=== PATIENT | female | born 1950 | race Caucasian/White ===

== ENCOUNTER 2019-07-04 14:24 | Outpatient (REF) | payer OTHER, SELFPAY | END 2019-07-04 14:44 | LOC: LBN 14:24 | PROVIDERS: PCP Nurse Practitioner; Visit Provider Nurse Practitioner | DX: N89.8 Other specified noninflammatory disorders of vagina (principal) | CPT/HCPCS: 87480; 87510; 87660 ==

== ENCOUNTER 2019-07-14 09:35 | Outpatient (REF) | payer OTHER, SELFPAY ==
--- NOTE | 2019-07-14 09:10 | PAPFT_PTH ---
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
== END 2019-07-14 09:55 ==
LOC: LBN 09:35
PROVIDERS: PCP Nurse Practitioner; Visit Provider Obstetrics & Gynecology
DX: N89.8 Other specified noninflammatory disorders of vagina (principal); Z12.4 Encounter for screening for malignant neoplasm of cervix; Z11.51 Encounter for screening for human papillomavirus (HPV)
CPT/HCPCS: 88142; 87480; 87510; 87624; 87660

== ENCOUNTER 2019-07-24 00:25 | Outpatient (CLI) | payer OTHER, SELFPAY ==
--- NOTE | 2019-07-24 08:00 | DI.US_ITS ---
EXAM: US PELVIS TRANSVAGINAL CLINICAL HISTORY: post menopausal bleeding and discharge, N95.0. TECHNIQUE: Transabdominal and transvaginal pelvic ultrasound was performed using standard protocol. COMPARISON: No exams were available for comparison FINDINGS: KIDNEYS: Kidneys are symmetric in size. No evidence of renal calculi. No evidence of hydronephrosis. No renal mass or cyst identified. UTERUS: Position: Anteverted. Size: 9.2 x 4.3 x 6.2 cm Endometrium: 1.7 cm. Thickened and heterogeneous for the patient's age. Myometrium: There are 2 masses seen within the myometrium. The largest is anterior in the fundal reg ion and measures 4 x 2.7 x 4.0 cm. The smaller is posterior in the lower uterine segment and measure s 2.4 x 2.3 x 2.8 cm. These likely reflect uterine fibroids. They do distort the contour of the jona kathie. Cervix: Nabothian cysts are present. OVARIES: Right: Not visualized transabdominally or transvaginally. Left: Not visualized transabdominally or transvaginally. CUL-DE-SAC: Free fluid: None. Other: None. IMPRESSION: 1. Normal sonographic appearance of the kidneys. 2. Uterine fibroids. 3. Thickened heterogeneous endometrium. In this postmenopausal patient, gynecologic follow-up is rec ommended. Endometrial biopsy should be considered. 4. Ovaries not visualized transabdominally or transvaginally. DATA REPOSITORY:
[2019-07-24 10:29] LABS: Hemoglobin A1C 5.9 % (3.8-5.6)
[2019-07-24 10:43] LABS: Calculated LDL 150 mg/dL (<100); Cholesterol 243 mg/dL (<200); HDL Cholesterol 76 mg/dL (40-60); Triglyceride 86 mg/dL (<150)
== END 2019-07-24 00:45 ==
PROVIDERS: PCP Nurse Practitioner; Visit Provider Obstetrics & Gynecology
DX: N95.0 Postmenopausal bleeding (principal); E78.5 Hyperlipidemia, unspecified; Z13.1 Encounter for screening for diabetes mellitus; D25.9 Leiomyoma of uterus, unspecified; R93.89 Abnormal findings on diagnostic imaging of other specified body structures
CPT/HCPCS: 36415; 80061; 76830; 76856; 83036

== ENCOUNTER 2019-10-10 02:27 | Outpatient (CLI) | payer OTHER, SELFPAY ==
--- NOTE | 2019-10-10 12:00 | DI.MAMMO_ITS ---
EXAM: MG MAMMO SCREENING CLINICAL HISTORY: screening, Z12.39 TECHNIQUE: Mammograms were interpreted according to the usual protocol including computer analysis w [employer] CAD system, tomosynthesis and C-view imaging. COMPARISON: FINDINGS: Are of moderate density with fairly symmetrical distribution of fibroglandular tissue. No dominant m ass or clumped microcalcification is identified in either breast. No prior studies available for mee diaz. IMPRESSION: No specific evidence of malignancy at this time. Routine screening examinations are suggested at yea rly intervals in this age group according to the ACS ACR guidelines. BI-RADS Cat 1 - Negative: Breast Density - Category B - Scattered areas of fibroglandular density
== END 2019-10-10 02:47 ==
PROVIDERS: PCP Nurse Practitioner; Visit Provider Nurse Practitioner
DX: Z12.31 Encounter for screening mammogram for malignant neoplasm of breast (principal)
CPT/HCPCS: 77063; 77067; 99203

== ENCOUNTER 2019-10-13 02:54 | Outpatient (CLI) | payer OTHER, SELFPAY ==
[2019-10-13 11:05] LABS: Abs Immature Grans 0.01 k/cumm (0.0-0.09); Absolute Basophil Count 0.04 k/cumm (0.0-0.2); Absolute Eosinophil Count 0.12 k/cumm (0.0-0.7); Absolute Lymphocyte Count 1.48 k/cumm (1.2-3.4); Absolute Neutrophil Count 3.59 k/cumm (1.2-6.7); Basophils % 0.7; Eosinophils % 2.1; HCT 43.4 % (36.0-46.0); Immature Grans % 0.2 %; Lymphocytes % 25.3; Mean Corp. HGB Concentration 32.3 g/dL (32.0-36.0); Mean Corpuscular Hemoglobin 29.9 pg (27.0-33.0); Mean Corpuscular Volume 92.5 fL (80-95); Mean Platelet Volume 9.2 fL (8.0-11.0); Monocytes % 10.3; Neutrophils % 61.4; Platelet Count 359 x1000/uL (130-400); RBC 4.69 m/cumm (4.00-5.20); RBC Distribution Width 13.2 % (11.7-14.6); White Blood Cell Count 5.84 k/cumm (4.4-10.8)
== END 2019-10-13 03:14 ==
PROVIDERS: PCP Nurse Practitioner; Visit Provider Obstetrics & Gynecology
DX: E66.09 Other obesity due to excess calories (principal); N89.8 Other specified noninflammatory disorders of vagina; Z68.38 Body mass index [BMI] 38.0-38.9, adult
CPT/HCPCS: 36415; 86850; 86900; 86901; 85025

== ENCOUNTER 2019-10-16 07:58 | Outpatient (CLI) | payer OTHER, SELFPAY ==
[2019-10-17 14:19] LABS: COVID-19 RT-PCR UVMMC Result Negative (Negative)
== END 2019-10-16 08:18 ==
PROVIDERS: PCP Nurse Practitioner; Visit Provider Obstetrics & Gynecology
DX: Z11.59 Encounter for screening for other viral diseases (principal); Z01.818 Encounter for other preprocedural examination
CPT/HCPCS: U0003

== ENCOUNTER 2019-10-19 13:01 | Day surgery (SDC) | payer OTHER, SELFPAY ==
[2019-10-19 13:20] VITALS: BP 170/97; PULSE 62; RESP 18; TEMP 36.6; O2SAT 99
[2019-10-19] MEDS: Lactated Ringers 1,000 ML 100 ML IV (13:40)
--- NOTE | 2019-10-19 14:56 | ENDOMET_PTH ---
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
[2019-10-19] MEDS: Lidocaine 1% Multi-Dose 50 ML VIAL (14:59)
[2019-10-19] MEDS: HYDROcodone 5/Acetaminophen 325 TAB PO (15:39)
[2019-10-19 15:45] VITALS: BP 144/70; PULSE 62; RESP 16; TEMP 36.5; O2SAT 100
[2019-10-19 16:13] VITALS: BP 138/61; PULSE 63; RESP 16; TEMP 36.5; O2SAT 100
--- NOTE | 2019-10-19 16:28 | W.PM.DSUDISC ---
Discharge Plan Disposition Patient Disposition: HOME Condition: Good Discharge Details Attending Provider: Cristian Ortiz Primary Care Provider: Autumn Castillo Home Meds and New Rx's Prescriptions: New hydrocodone-acetaminophen 5-325 mg Tablet 1 tab PO Q4H PRNQty: 15 RF: 0 norethindrone acetate [Aygestin] 5 mg tablet 5 mg PO QID 3 Days Qty: 12 RF: 0 Continued multivitamin [Daily Vitamin] 1 EACH tablet 1 ea PO DAILY RF: 0 ascorbic acid (vitamin C) 1,000 MG tablet 1,000 mg PO DAILY RF: 0 cholecalciferol (vitamin D3) [Vitamin D3] 1,000 UNIT capsule 1,000 unit PO DAILY RF: 0 melatonin-pyridoxine HCl (B6) 1 EACH tablet 1 ea PO HS RF: 0 Caltrate 600-D Plus Minerals 1 EACH tablet 1 ea PO DAILY RF: 0 vitamin B complex 1 EACH capsule 1 ea PO DAILY RF: 0 magnesium citrate 100 MG tablet 500 mg PO DAILY RF: 0 Discharge Instructions Stand Alone Forms: DSU Post Gynecology Surgery, [facility] Post Suction D+C, Jessica Burroughs (DSU) Activity:: Activity as Tolerated Remove Dressings/Wound Care:: Do Not Remove Diet:: As Tolerated Discharge Orders Discharge Orders: Discharge Order (Routine); Ordered 10/19/19 Ordered By: Cristian Ortiz DS: Diagnosis Discharge Diagnosis (1) Post-menopausal bleeding: Status: Acute
[2019-10-19] MEDS: Norethindrone 5 MG TAB 10 MG PO (16:33)
--- NOTE | 2019-10-19 16:33 | W.PM.OP ---
Date of service: 10/19/19 Time of Service: 16:33 Operative Note Operative Note DATE OF PROCEDURE: 10/19/19 PRE-OP DIAGNOSIS: PMB POST-OP DIAGNOSIS: same PROCEDURE: Hysteroscopy D&C SURGEON: Cristian Ortiz ANESTHESIA: MAC and local ESTIMATED BLOOD LOSS: 75 PATHOLOGY: other (1. Endometrial polyps 2. Endometrial curettings ) COMPLICATIONS: None Patient was transported to: PACU Patient's condition: stable Findings: 1. Large endometrial polyp measurine ~3cm with several small polyps and background of atrophic appearing endometrium. Procedure Description: The patient was taken to the operating room and after adequate sedation was achieved the patient was placed in lithotomy position. The patient was prepped and draped in the usual sterile manner. A speculum was placed in the vagina with good visualization of the cervix. The cervix was essentially flush with the upper vagina. An Allis forcep was placed on the anterior lip of the cervix. A paracervical block with 10 cc of 1% plain lidocaine solution was instilled. The cervical os was open and did not require dilation. A 5 mm 30 degree hysteroscope with normal saline distention media was advanced through the cervix with good visualization of the endometrial cavity. There was a large endometrial polyp measuring approximately 3 cm that was filling the endometrial cavity. There were several small surrounding polyps. The background endometrium was atrophic in appearance. Polyp forceps were advanced easily and the polyp was grasped and twisted on its stalk. The polyp was removed easily. Several passes were made with the polyp forceps and the remaining polyps were also removed. These were submitted to pathology as a separate specimen. The hysteroscope was reinserted and the polyps appeared to have all been removed successfully. A sharp curettage with a loop curette was performed and endometrial curettings were submitted as a separate specimen as well. The procedure was concluded at this point. Sponge, lap and instrument counts were correct at the conclusion of the procedure. The patient was transferred to PACU in stable condition.
[2019-10-19 16:37] VITALS: BP 123/67; PULSE 69; RESP 16; TEMP 36.3; O2SAT 100
[2019-10-19 17:03] VITALS: BP 153/73; PULSE 57; RESP 18; TEMP 36.5; O2SAT 100
== END 2019-10-19 17:10 | disposition home or self-care (01) ==
PROVIDERS: PCP Nurse Practitioner; Visit Provider Obstetrics & Gynecology
PROC: 0UDB8ZZ Extraction of Endometrium, Via Natural or Artificial Opening Endoscopic (ICD-10-PCS; CPT 58558; principal; 2019-10-19 14:30)
DX: C54.1 Malignant neoplasm of endometrium (principal); N95.0 Postmenopausal bleeding; N84.0 Polyp of corpus uteri; R93.89 Abnormal findings on diagnostic imaging of other specified body structures
CPT/HCPCS: 58558; 88305; 88342; 88361; J1885; J2001; J2405

== ENCOUNTER 2019-11-13 00:44 | Outpatient (CLI) | payer OTHER, SELFPAY ==
--- NOTE | 2019-11-13 | DI.CT_ITS ---
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 TECHNIQUE: Imaging Protocol: Axial computed tomography images with coronal and sagittal reformatted images were created and reviewed CONTRAST MATERIAL: Intravenous: Omnipaque 350 Contrast volume:structured data in ml Oral: Yes Intravenous: Omnipaque 350 Contrast volume:100 cc COMPARISON: Pelvic ultrasound 24 July 2019 FINDINGS: CHEST: Heart and great vessels: Normal heart size. Minimal aortic calcification. No aneurysm. There are no pleural or pericardial effusions. Adenopathy: None. Lungs: No pulmonary nodules, mass or infiltrate. Minimal scarring. Bones: Mild degenerative disc changes. There is no evidence of spine or rib fracture. Thyroid: Several nodules right lobe. ABDOMEN/PELVIS: Liver: Normal density. No measurable mass. Gallbladder: No calcified stones, no wall thickening, no abnormal distention.No pericholecystic fluid . Biliary tract: No radiodense calculus, no dilation. Pancreas: Normal density, no abnormal calcifications or inflammatory process. Spleen: Normal. Kidneys: Normal size, contour and axis. No radiodense stones. No hydronephrosis. No masses seen. No perinephric collection. Adrenal glands: No masses seen. Abdominal Aorta: Non-dilated. Mild atherosclerotic changes. Bowel: No obstruction or bowel wall thickening. Diverticulosis is present greatest in the sigmoid col on. The appendix appears normal. There is a moderate size hiatal hernia. Bladder: No gross wall thickening, focal mass or stones. Peritoneal cavity: No ascites, focal collection or mesenteric inflammatory response. No free air. Bones: No suspicious lesions or fractures. Mild degenerative changes. Reproductive organs: Uterus is enlarged and shows a lobulated contour, consistent with fibroids.. Lymph nodes: No pathologically enlarged lymph nodes. Soft tissues: There is a spigelian hernia containing mainly fat. There is a small portion of the sup erior right side of the bladder extending into the defect. Impression: No evidence of metastatic disease in the chest, abdomen and pelvis. RADIATION DOSE DELIVERED: LINK-TO-SR Total DLP Total DLP DATA REPOSITORY: All CT scans at this facility are submitted to the National Radiology Data Registry (NRDR) Dose Index Registry (DIR) with the [employer] (ACR). RADIATION OPTIMIZATION: All CT scans at this facility use at least one of these dose optimization te chniques: automated exposure control; mA and/or kV adjustment per patient size (includes targeted exa ms where dose is matched to clinical indication); or iterative reconstruction.
[2019-11-13] MEDS: Omnipaque 350 MG/ML 100 ML BTL IV (09:50)
[2019-11-13] MEDS: Normal Saline - Diluent 50 ML VIAL IV (10:54)
[2019-11-13] MEDS: Normal Saline Flush 10 ML SYR IVP (10:55)
== END 2019-11-13 01:04 ==
PROVIDERS: PCP Nurse Practitioner; Visit Provider Obstetrics & Gynecology Gynecologic Oncology
DX: C54.1 Malignant neoplasm of endometrium (principal); Z12.89 Encounter for screening for malignant neoplasm of other sites; D25.9 Leiomyoma of uterus, unspecified; K43.9 Ventral hernia without obstruction or gangrene; E04.2 Nontoxic multinodular goiter
CPT/HCPCS: 74177; 71260; J3490

== ENCOUNTER 2021-03-12 15:01 | Outpatient (CLI) | payer OTHER, SELFPAY ==
--- NOTE | 2021-03-12 14:45 | DI.RAD_ITS ---
Exam(s) XR SHOULDER LT COMPLETE 2+V EXAM: XR SHOULDER LT COMPLETE 2+V CLINICAL HISTORY: dislocation of left glenohumeral joint. TECHNIQUE: 2D digital imaging was performed. COMPARISON: CR,DX XR SHOULDER 2+ VW LEFT from 03/08/2021 FINDINGS: There is comminuted fracture dislocation of the humeral head-neck. Main aspect of the humeral head i s dislocated anteriorly, as best seen on the outlet view. Other oblique fracture line extends from t op of the femoral head through the metaphysis. On the outlet view a main fracture fragment here is l ocated posteriorly. There is also a 6 x 4 millimeter calcific density seen in the upper glenoid gómez a. This is probably pre-existing. No obvious fracture of the osseous glenoid itself. No dislocation of the AC joint. No obvious clavi shen nor acromial fracture. No ominous osseous lesions. IMPRESSION: Displaced comminuted fracture of the humeral head and neck, as described above. DATA REPOSITORY: RADIATION DOSE DELIVERED:
== END 2021-03-12 15:02 | disposition home or self-care (01) ==
LOC: DIORS 15:01
PROVIDERS: PCP Nurse Practitioner; Referring Provider Nurse Practitioner; Visit Provider Student in an Organized Health Care Education/Training Program
DX: S43.085A Other dislocation of left shoulder joint, initial encounter (principal); S42.292A Other displaced fracture of upper end of left humerus, initial encounter for closed fracture; W19.XXXA Unspecified fall, initial encounter; I10 Essential (primary) hypertension
CPT/HCPCS: 99204; 99214; 73030

== ENCOUNTER 2021-03-18 01:42 | Outpatient (CLI) | payer OTHER, SELFPAY ==
[2021-03-18 12:41] LABS: Source Nasal/Nares
[2021-03-18 16:05] LABS: COVID-19 PCR Negative (Negative)
== END 2021-03-18 01:43 | disposition home or self-care (01) ==
LOC: LBO 01:43
PROVIDERS: PCP Nurse Practitioner; Visit Provider Student in an Organized Health Care Education/Training Program
DX: Z20.822 Contact with and (suspected) exposure to COVID-19 (principal); Z01.818 Encounter for other preprocedural examination
CPT/HCPCS: 87635

== ENCOUNTER 2021-03-20 09:59 | Inpatient (IN) | payer MEDICARE, SELFPAY ==
[2021-03-20] VITALS (10 sets, daily range): BP systolic 127–175; BP diastolic 51–81; PULSE 68–83; RESP 15–23; TEMP 36.4–37.3; TEMPC 36; O2SAT 95–100; BMI 37.3
--- NOTE | 2021-03-20 07:34 | W.ANESPRE ---
General Info Date of Service Date Performed: 03/20/21 Height: 5 ft 5 in Weight: 101.605 kg Body Mass Index (BMI): 37.3 Surgical Procedure: Operation Date: 03/20/21 11:40 Proposed Procedures Side Surgeon p Fracture Reverse Total Shoulder Arthroplasty, biceps tenodesis, and any other indicated procedures Naif Hernandez MD Meds Allergies and Home Medications Allergies Allergy/AdvReac Type Severity Reaction Status Date / Time Sulfa (Sulfonamide AdvReac Not Unverified 03/20/21 10:44 Antibiotics) effective Home Medication Medication Instructions Recorded hydrochlorothiazide 25 mg tablet 25 mg PO DAILY #90 tab 08/13/20 melatonin 10 mg capsule 10 mg PO HS 08/13/20 acetaminophen 1,000 mg PO Q6H PRN 03/20/21 Current Visit Medications: Current Medications Generic Name Dose Route Start Last Admin Trade Name Freq PRN Reason Stop Dose Admin Ringer's Solution 1,000 mls @ 100 mls/hr 03/20/21 06:00 IV 04/18/21 23:59 INFUSION JARETH Cefazolin Sodium 3,000 mg/ 100 mls @ 200 mls/hr 03/20/21 06:00 Sodium Chloride IVPB 03/20/21 23:59 PREOP JARETH Tranexamic Acid 1,000 mg/ 60 mls @ 360 mls/hr 03/20/21 06:00 Sodium Chloride IVPB 03/20/21 18:00 PREOP JARETH IV Miscellaneous Supplies 1 each 03/20/21 06:00 Iv Access IV 04/18/21 23:59 DIRECTED JARETH Sodium Chloride 0 ml 03/20/21 06:00 Normal Saline Flush 10 Ml Syr IV 04/18/21 23:59 PRN PRN Sodium Chloride 0 ml 03/20/21 06:00 Normal Saline 10 Ml Vial IJ 04/18/21 23:59 DIRECTED PRN Sterile Water 0 ml 03/20/21 06:00 Water,Injection,Sterile 10 Ml Vial IJ 04/18/21 23:59 DIRECTED PRN PFSH Active Problems Active Problems: Problem Status Onset Code Closed traumatic dislocation of left glenohumeral joint 03/08/21 S43.085A Closed fracture of proximal end of left humerus 03/08/21 S42.202A Prediabetes R73.03 Hypertension I10 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 Obesity E66.9 Medical History Medical History Tonsillar abscess drained Torticollis Vaginal discharge Surgical History Surgical History H/O Spinal surgery repairing torticollis S/P hysterectomy 11/2019 adenocarcinoma endometrium Tobacco Smoking/Tobacco Use Status: Former Tobacco Use Alcohol Alcohol Intake: never Substance Use Substance use: Never Substance use type: does not use Vital Signs and Lab Results Lab Results Blood Type / Crossmatch: No Data to Display Complete Blood Count: No Data to Display Complete Metabolic Panel: No Data to Display Liver Function Panel: No Data to Display Coagulation Panel: No Data to Display Cardiac Panel: No Data to Display Arterial Blood Gas: No Data to Display Venous Blood Gas: No Data to Display Pancreas Panel: No Data to Display Thyroid Panel: No Data to Display Infectious Disease: Coronavirus (COVID-19)(PCR) Negative (Negative) 03/18/21 10:31 03/18/21 Coronavirus 2019 Source Nasal/Nares 03/18/21 10:31 03/18/21 Blood Cultures: No Data to Display Toxicology Panel: No Data to Display Anesthesia Assessment and Plan Anesthesia History Personal History: No History of Anesthesia Complications Family History: No Family History of Anesthesia Complications Exercise Tolerance Exercise Tolerance: Metabolic Equivalents>4 Pertinent Negatives Pertinent Negatives: No Symptoms of GERD, No Major Cardiovascular Symptoms or Complaints, No Major Pulmonary Symptoms or Complaints and No History of CVA/TIA Cardiac & Pulmonary Exam Cardiac Exam: Normal S1/S2 Heart Sounds Pulmonary Exam: Clear Bilateral Breath Sounds Implantable Cardiac Device Does patient have a Pacemaker or an ICD?: No Airway Exam Known Difficult Airway: No Mallampati Class: 3 Mouth Opening: Normal (> 3cm) Thyromental Distance: Less than 3 cm Neck Range of Motion: Full ROM Neck Circumference: Normal Teeth Condition: Removable Dentures/Plates Upper, Removable Dentures/Plates Lower and Edentulous ASA Classification ASA Score: ASA 2 Emergency Case?: No NPO Status NPO Status: NPO Clears >2 hours, Solids >8 hours Anesthesia Plan Resuscitation Status: Full Code Anesthesia Technique: General Anesthesia Airway Planned: Endotracheal Tube Pain Management: Surgeon and patient request nerve block Monitors Used: Standard Monitors
--- NOTE | 2021-03-20 10:15 | DI.RAD_ITS ---
Exam(s) XR SHOULDER LT COMPLETE 2+V EXAM: XR SHOULDER LT COMPLETE 2+V CLINICAL HISTORY: Postop TECHNIQUE: COMPARISON: CR XR SHOULDER LT COMPLETE 2+V from 03/12/2021 FINDINGS: Three views were obtained. There is a reverse shoulder prosthesis in position. The components appea r well seated. Some fragmentation at the proximal humerus is noted, probably unchanged from the preo perative images which showed a proximal humeral comminuted fracture. IMPRESSION: RADIATION DOSE DELIVERED: Total DLP
[2021-03-20] MEDS: Lactated Ringers 1,000 ML 100 ML IV (10:46)
[2021-03-20] MEDS: Normal Saline Flush 10 ML SYR IV (11:12)
[2021-03-20] MEDS: ceFAZolin 3,000 MG in Normal Saline 100 ML 200 MG IVPB (11:54)
--- NOTE | 2021-03-20 12:57 | W.ANESNERVE ---
Nerve Block Single Injection Procedure Date and Time Date Performed: 03/20/21 Procedure Start: :25 Location Where Procedure Performed Procedure Location: Day Surgery Unit Reason Performed: Postoperative Analgesia Requesting Provider: Naif Hernandez Timeout Performed Timeout Performed: Yes Monitoring Used ECG, Blood Pressure and SpO2 Sterility Sterility: Hand Hygiene, Surgical Cap, Surgical Mask, Sterile Gloves and Chlorhexidine Sedation Given During Procedure Sedation Given (Indicate Dose Given): Versed IV Dose:: 2mg Patient Mental Status Patient Mental Status: Sedate with meaningful communication Nerve Block 1st Nerve Block: Laterality: Left Block Type: Interscalene Needle / Catheter Used: 80mm SonoPlex II Local Anesthetic Bolus (Indicate Dose Given): Lidocaine used for local infiltration of skin, Bupivacaine 0.5% Dose:: 10 mL and Exparel Dose:: 10 mL Additives (Indicate Dose Given): None Ultrasound: Sterile probe cover and gel used Ultrasound Image Saved?: Yes Nerve Stimulator: Not Used Paresthesia: None Procedure Tolerated: No Complications and Patient tolerated well Procedure Outcome: Successful Performed By: Kristy Montgomery Supervised By: Nicholas Cardoso
--- NOTE | 2021-03-20 16:35 | W.PM.OP ---
Date of service: 03/20/21 Time of Service: 12:00 Operative Note Operative Note DATE OF PROCEDURE: 03/20/21 PRE-OP DIAGNOSIS: Left: 1. Proximal humerus fracture dislocation POST-OP DIAGNOSIS: same PROCEDURE: Left: 1. Reverse total shoulder arthroplasty, CPT # 04999 2. Open biceps tenodesis, CPT # 86629 The urgent care physician assistant was medically required as this procedure involves retraction, protection of neurovascular structures, and manipulation of multiple instruments and implants at the same time, which cannot be done without a skilled urgent care physician assistant. SURGEON: Naif Hernandez CLOTHESPIN MACHINE OPERATOR: Maricarmen Tomlinson CLOTHESPIN MACHINE OPERATOR: Ana Cristina Preston ANESTHESIA TYPE: Local By Surgeon, General LMA/ETT and Primary Nerve Block Refer to Anesthesia Record ESTIMATED BLOOD LOSS: 300 PATHOLOGY: none sent TOURNIQUET TIME: 0 COMPLICATIONS: None Patient was transported to: PACU Patient's condition: stable Implants: [employer] modular glenoid system baseplate 24 mm [employer] modular glenoid system central post 25mm [employer] modular glenoid system peripheral inferior nonlocking screw 32 mm, peripheral locking screws 32 mm superior, 16mm posterior, 16mm anterior [employer] modular glenoid system glenosphere 36 +4 mm lateralized [employer] humeral stem 135 degrees size 7 [employer] suture cup size 36 neutral offset [employer] humeral insert size 36 +3 mm Indications: Please see complete medical record for details. Findings: Significantly comminuted displaced proximal humerus fracture. Long head biceps tenosynovitis. Intact subscapularis to large lesser tuberosity fragment that crossed the bicipital groove. Thin but intact supraspinatus and infraspinatus to the greater tuberosity fragments. Procedure Description: In the operating room, general anesthesia was induced. The patient was positioned beachchair on the operating room table. All bony prominences were well-padded. Preoperative antibiotics were administered. The shoulder was prepped and draped in the usual sterile fashion for shoulder arthroplasty. The correct patient, procedure, and side of the procedure were all verified prior to incision. The deltopectoral approach was taken to the anterior shoulder. Care was taken to bluntly dissect the interval between the deltoid and pectoralis major muscles and to identify the cephalic vein within its fat stripe. The the vein was mobilized medially. Subdeltoid space and conjoined tendon were freed of adhesions. The long head of the biceps tendon was identified just lateral to the lesser tuberosity. The uppermost margin of the pectoralis major tendon was released from the proximal humerus. The long head of the biceps tendon was tenodesed in situ using suture tape in a [id number] fashion securing it superior margin the pectoralis major tendon. Appropriate coagulation was achieved especially inferiorly. The biceps tendon was amputated and followed proximally to identify the rotator interval. A Mcgregor was used to dissect and identify the expected lesser tuberosity and greater tuberosity fracture fragments. They were from each other as well as the proximal metaphysis carefully to preserve fracture lloyd. They were each tagged using a suture tape and retracted out of the way posteriorly. A proximal humerus was retracted inferiorly and posteriorly and the humeral head was identified in the subcoracoid recess. Blunt retractors and digital dissection was used to free it from surrounding tissue and it was carefully rotated and withdrawn from the wound in entirety. There was release of hematoma but no additional venous or arterial bleeding. There is no obvious nerve injury. The proximal humerus did not require any bone cut given the low fracture. The head was brought to the back table and cancellous bone harvested for later bone grafting. The lesser tuberosity was then retracted anteriorly and the greater tuberosity posteriorly. Attention was then turned to the glenoid and retractors were placed and a 360 degree release performed using the long head of the biceps remnant to remove soft tissue about the glenoid rim. The axillary nerve was palpated but not exposed inferior and traversing from beneath the subscapularis tendon appropriately below the scapular neck heading posteriorly. Care was taken inferiorly to work on bone only between 5 and 7:00 o'clock and bluntly elevate tissues inferiorly. The glenoid was decorticated soft tissue and residual cartilage. Once adequate exposure had been achieved, a central inferior position was marked on the glenoid. The guidepin was inserted through the guide in a neutral position, but the wire exited anteriorly around 20-25 mm. Guidewire was then withdrawn and redirected into more posterior position taking care to maintain slight inferior tilt. Wire length was more appropriate around 30 mm. Depth gauge was used to confirm central post length. The central reamer followed by the peripheral reamer were then used to the appropriate depths. There was appropriate eccentric reaming inferiorly and anteriorly. The drill for the central post was used the appropriate depth. The baseplate was impacted and fully compressed onto the glenoid surface. Testing the glenoid baseplate resulted in movement through the entire scapula. The over baseplate reamer was used to confirm adequate peripheral reaming had been achieved. The nonlocking guide was used to direct and inferior screw posteriorly inferiorly at the scapular spine, which was inserted with excellent compressive fixation strength. The locking guide was used superiorly, but the screw exited somewhat early around 25 mm. Instead the nonlocking guide was then used and screw directed more anteriorly toward the base of the coracoid. Unfortunate, the compression screw did not have good fixation strength. Depth was confirmed and a slightly longer screw was selected, but this also did not have compressive strength. Instead, the originally drilled locking screw trajectory was then used bicortically and a locking screw placed without difficulty. The inferior compression screw was fully tightened before engaging the superior locking screw. The locking guide and drill were used to drill for anterior and posterior baseplate locking screws, which were appropriately implanted. Glenosphere was then placed onto the Morales taper and impacted. It was then locked with appropriate countersinking of the setscrew. The glenosphere was inspected and found to have good fit, appropriate positioning, and no soft tissue or bony impingement especially inferiorly. Attention was then turned back to the proximal humerus, which was delivered from the wound and maintained in external rotation. There was significant bone loss owing to the extension of the greater and lesser tuberosity fractures distally. A double fiber tape cerclage was placed at this inferior extent of the fracture with the tails left for later tuberosity fixation. Reaming was done up to size 7. The broaches were sequentially used to open the proximal humerus starting with a size 5 and going up to size 7 and sunk to the appropriate depth using the intact medial calcar as a guide while maintaining approximately 30 degrees retroversion. There is appropriate fit and rotational control. No reaming was necessary for the suture cup given the fracture setting.. The humeral trial cup was connected. Trialing was commenced with +3mm liner. The shoulder was reduced and taken through range of motion. There was excellent tension of the conjoined tendon and deltoid. Range of motion was appropriate without impingement and stability was good. The trial components were removed from the proximal humerus. The wound was copiously irrigated with normal saline. A small amount of vancomycin powder was distributed in the proximal humerus. The the proximal humeral stem and suture cup were assembled on the back table. A doubled FiberTape was then passed in cerclage fashion from anterior to posteriorly around the holes in the suture cup. Additional suture tapes were loaded anteriorly superiorly and posteriorly for tuberosity repair through suture cup. Humerus and suture cup were appropriately impacted into the proximal humerus. There were tested and found of excellent rotational control and fixation. Trial reduction for stability and range of motion was done again with the +3mm liner. Stability was good with appropriate tension on the conjoined deltoid. The tuberosities were able to be repaired to the fracture lloyd without undue difficulty. The trial liner removed and the definitive spacer and liner connected. Shoulder was reduced and these final implants demonstrated appropriate range of motion and stability. Cancellous bone graft was then packed around the proximal humerus metaphysis stem and suture cup. Care was taken to reduce the greater tuberosity bone fragment lesser tuberosity bone fragment to the fracture lloyd distally and to each other. A free needle was used to pass the loaded anterior superior and posterior suture tapes through the rotator cuff the bony margin of the greater none lesser tuberosity and reduction maintained while they were tied down in a horizontal mattress fashion. Additional bone graft was placed and packed appropriately beneath the anterior and posterior tuberosities about the suture cup. The initial tag stitches were then brought over and tied to each other closing the door. The anterior and posterior tuberosity stitches from the implant where also brought over and tied together. The remainder of the bone graft was then packed about the suture cup metaphyseal junction. The fiber tape cerclage was then brought over the bony tuberosities more distally and secured with a Nice knot. Suture tapes were then brought from anterior superior and posterior superior and tied down to the fiber tape cerclage securing additional fixation from proximal to distal. The repair was inspected and felt to well approximate the anatomy. The greater and lesser tuberosity moved as a unit with each other in the proximal humerus. An additional suture tape was placed in the lateral rotator interval. The shoulder was copiously irrigated with normal saline and then irrisept. The deltopectoral interval was loosely closed burying the cephalic vein with 0-Vicryl. Subcutaneous tissue was irrigated then closed using 2-0 Monocryl in a buried interrupted fashion. The skin was closed using 3-0 Monocryl in a buried subcuticular fashion. Skin glue was applied to the incision. A silver impregnated bandage was placed over the incision. The extremity was placed into a shoulder immobilizer. The patient awoke from anesthesia without complication and was taken to the recovery room in stable condition.
--- NOTE | 2021-03-20 16:42 | W.ANESPOSTOP ---
Postoperative Evaluation Date, Time and Location Date Performed: 03/20/21 Time Performed: 16:50 Patient Location: PACU Vital Signs Most Recent Imported Vital Signs: Most Recent Vital Signs Temp Pulse Resp BP Pulse Ox 37.3 C 77 21 138/54 L 97 03/20/21 10:28 03/20/21 11:35 03/20/21 11:35 03/20/21 11:35 03/20/21 11:35 Most Recent Manually Entered Vital Signs: Adult Blood Pressure: 163/59 Heart Rate: 71 Respirations: 20 Oxygen Saturation (%): 98 Temperature (C): 36 C Pain Score (0-10 Scale): 0 Pain Score Most Recent Pain Score: Most Recent Pain Score Pain Level 3 03/20/21 11:35 Assessment Mental Status: Arousable with meaningful communication Airway and Respiratory Function: Patent airway with normal (patient baseline) respiratory exam Cardiovascular Function: Hemodynamically Stable Hydration Status: Adequately Hydrated Nausea & Vomiting: No Nausea or Vomiting Pain: Pt. Denies Any Pain Peripheral Nerve Block: Regional nerve block not resolved at time of post operative discharge
--- NOTE | 2021-03-20 17:01 | W.PM.PROGNOT ---
Date of Service Date of service: 03/20/21 Time of Service: 17:00 Assessment and Plan Assessment and plan (1) Closed traumatic dislocation of left glenohumeral joint: Status: Acute Assessment and plan: As below (2) Closed fracture of proximal end of left humerus: Status: Acute Assessment and plan: 70 year old female postop day #0 status post left fracture reverse total shoulder arthroplasty with biceps tenodesis Complete 24 hours postoperative antibiotics Discontinue catheter AM postop day #1 Pain control-Multimodal as ordered. Physical therapy and Occupational Therapy ordered: Fracture reverse TSA protocol. Should remove sling while in bed or resting. Recommend sling when ambulatory or out of home. Passive range of motion to the shoulder. Active range of motion elbow, wrist, and hand. May use upper extremity gently for all essential ADLs including active range of motion within a limited arc with light weightbearing. Continue mechanical DVT prophylaxis with SCDs and/or ZACHARY hose Start 81 mg ASA 24 hours postoperative Plan discharge home tomorrow Qualifiers: Encounter type: initial encounter Fracture alignment: displaced Fracture morphology: other fracture Qualified Code(s): S42.292A - Other displaced fracture of upper end of left humerus, initial encounter for closed fracture Subjective Subjective Interval history since last seen: No complaints. Exam Narrative Exam Narrative: Resting comfortably in PACU. Smiles when asked questions. Left shoulder dressing clean dry intact. Old ecchymosis present arm. Compartments soft. Limited intact motor distally but demonstrate flicker due to nerve block. Sensory block still in place. 2+ left radial pulse. Regular rate and rhythm.
[2021-03-20] MEDS: ceFAZolin 1 GM/50 ML BAG IVPB (20:03)
[2021-03-20] MEDS: Melatonin 3 MG TAB 9 MG PO (23:51)
[2021-03-21 02:46] VITALS: BP 129/79; PULSE 80; RESP 18; TEMP 36.8; O2SAT 96
[2021-03-21] MEDS: Lactated Ringers 1,000 ML 100 ML IV (03:10)
[2021-03-21] MEDS: ceFAZolin 1 GM/50 ML BAG IVPB ×2 (04:20→11:54)
[2021-03-21] MEDS: Naproxen 500 MG TAB PO (04:27)
[2021-03-21 07:05] VITALS: BP 122/70; PULSE 78; RESP 16; TEMP 36.5; O2SAT 97
[2021-03-21] MEDS: Aspirin E.C. 81 MG TABEC PO (09:18)
[2021-03-21] MEDS: hydroCHLOROthiazide 25 MG TAB PO (09:19)
--- NOTE | 2021-03-21 09:24 | PT.INIE ---
Date of service: 03/21/21 Time of Service: 09:24 PT Notes Visit Reasons: Left shoulder fracture dislocation Physical Therapy Inpatient Initial Evaluation Date: 03/21/2021 Referring Doctor: Naif Hernandez MD PT Orders: PT CONSULT: Status post Ortho surgery. Left fracture Reverse TSA Precautions: Standard. NWB on the left. Sling on L UE on when walking out of the room. No combined internal rotation and shoulder extension on the left in close kinematic chain. See Dr. Hernandez's rTSA protocol. 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 Independent with all aspects of ADLs prior to surgery. Equipment Owned/DME: None Subjective: Patient states that she lost her balance while stepping on a divet on the road at the airport in [place]. She landed on her L shoulder and was attended to right away by airport personnel to stabilize injured area. During transfers and ambulation, patient denied 45complianed of unsettling incrasing fuzziness that made her want to sit down. She states that it takes quite a while for her to go back to normal after taking a seat. Objective: General Observation: Supine in bed. L UE resting on pillow. Mepilex Ag to L shoulder. IV access in R UE. Mental Status: Alert and oriented as to person, place, time, and purpose. Able to pay attention, focus, and respond appropriately. Pain: Denies Vital Signs: BP softened with patient in the 90s systolically and 60s diastolically with upright positioning and ambulation. Resting BP prior to PT evaluation was in the 140s/80s mmHg. Same thing happened when patient was seen an hour after. Nurse Patricia made aware right away. ROM: Left Upper Extremity: Was able to passively bring shoulder to 80degrees of flexion, 50 degrees of abduction, and 45 degrees of ER from a fully internally rotated position with mild discomfort at end of range. Strength: Left Upper Extremity: Shoulder flexors 3-/5. Shoulder abductors 3-/5. Shoulder ER 3-/5. Elbow flexors 4-/5. Elbow extensors 4-/5. Wrist 4/5. Olericulture Teacher strong. Bed Mobility/Transfers: Supine to sit with independent with minimal cues for safe/correct technique Sit to supine with independent with minimal cues for safe/correct technique Sit to stand with standby assist with minimal cues for safe/correct technique Stand to sit with standby assist with minimal cues for safe/correct technique Bed to reclining chair with contact-guard assist with minimal cues for safe/correct technique Gait: Patient only tolerated about 75 feet on level surface ambulation using front wheeled walker with contact-guard assist and reported increasing dizziness and anxiety requiring seated rest. Blood pressure softened to the 90s systolically and 60s diastolically. Nurse Gomez updated right away. After an hour patient was again requested to ambulate on level surfaces 30 feet was 100 feet +50 feet still demonstrating orthostatic hypotension requiring several seated rests. No LOB. No increase pain in left shoulder pain. L UE sling on. Balance: Static Sitting: Normal Dynamic Sitting: Good Static Standing: Fair Dynamic Standing: Fair Special Tests: Mobility Limitations Standardized Measure [facility] AM-PAC 6 clicks Basic Mobility Inpatient Short Form: Raw Score: 21 CMS Score: 29% deficit Informed Consent/Education: Patient was instructed in purpose of PT consult and plan of care. Agreeable to proceed with established PT POC to achieve personal goals. Assessment: BP variation increasing risk for falls and patient anxiety over mobility ADL performance. Reviewed EBL to be 300 mL with H and H WNL. Will defer to orthopedic surgeon for management and recommendations prior to ambulation progression. PROM limitations due to pain at end of range. Required use of SPC for increased stability during ambulation. Patient presents with clinical signs and symptoms consistent with current/admitting diagnoses that have resulted to mobility limitations, gait instability, generalized weakness, and overall ADL decline as demonstrated by the following impairment level findings: 1. Decreased strength to L shoulder major muscle groups 2. Impaired sitting/standing balance 3. Impaired activity tolerance 4. Limitation of joint range of motion in L shoulder 5. Orthostatic hypotension 6. On L rTSA protocol Impairments are contributing to the following functional limitations: 1. Decline in bed mobility skills 2. Decline in transfer skills 3. Difficulty with ambulation without assistive device and physical assistance 4. Increased completion time for mobility ADL performance 5. Increased risk for falls Patient is assessed as a 28868 moderate complexity based on the following: History: 70-year-old female with past medical history as indicated above Examination: Demonstrable impairment in strength, balance, and mobility level with underlying impairments and functional limitations as exhibited above as well as deficit score of 29 involving % utilizing the [facility] Mobility Inpatient Short Form Presentation: Evolving Decision Makin moderate complexity Goals: Goals X1 week 1. Supine-Sit independent 2. Sit-Supine independent 3. Sit-Stand independent 4. Stand-Sit independent with no AD 5. Bed-Chair independent with no AD 6. Chair-Bed independent with no AD 7. Independent gait on level surface with use of no AD for at least 500 feet without report of pain, fuzziness, dyspnea 8. Independent with home exercise program 9. Good static and dynamic standing balance/tolerance Plan of Care/Treatment Plan: 1-2x/day, 7 days/week x 1 week. Plan of care has been reviewed with the FEED GRINDER providing the service under Physical Therapy direction. Initiate Physical Therapy intervention for pain management as needed, strengthening, bed mobility, transfers, gait, stairs, balance training, and use of assistive device. DISCHARGE RECOMMENDATIONS: [] Home with no services [] [] Home with services [specify] [X] Home with outpatient PT: Home when medically cleared by orthopedic surgeon. May benefit from outpatient PT services to facilitate return to premorbid independent level. [] SNF for continued rehabilitation [] [] Division [facility] [] [] SNF versus LTC based on ability to participate and progress [] TREATMENT CODE/TIME: 9716 2 x 20 minutes, 9753 0 x 24 minutes, 9711 0 x 20 minutes beginning at 9:24 AM and 11:09 AM. Thank you for the opportunity to participate in the care of this patient. Naty Penaloza PT, DPT, CLT [facility] [place], [place]
--- NOTE | 2021-03-21 11:47 | OT.INNT ---
Date of service: 03/21/21 Time of Service: 09:35 Occupational Therapy Notes 03/21/21 OT consult received and pts chart was reviewed. Discharge summary signed by Dr. Hernandez clearing pt to return home at this time. OT went in to see pt and discussed transition home and what pt may need to be more successful. Pt lives with her in a private home. She was traveling when she fell resulting in a 4 way fx to her (L) UE. She has bruising throughout her axilla and underarm. She states her pain is manageable. OT did educate pt on donning and doffing her shirt and sling. Discussion on transferring into her shower and requiring the need for a shower bench which OT recommends for pt. Pt was receptive to training and notes that her will (A) with LE dressing. OT educated on use of (L) UE for ADLs to avoid weightbearing in to the joint, no behind the back reaching and that (L) UE may assist with gentle ADLs in the frontal plane. Full assessment was being completed by Physical Therapy at this time and OT was not able to complete a full assessment post education and training. But was able to give pt proper education and training on her ADLs. Due to this, OT will not charge pt for todays session. Pt is considered medically discharged per MD at this time per not in pts chart and OT will discharge pt from skilled OT services at this time. Eleonora Chisholm, OTR/L [facility]
--- NOTE | 2021-03-21 12:59 | INITIAL_ITS ---
- If Service Date Differs Date of service: 03/21/21 Time of Service: 12:59 Care Management Initial Assess REASON FOR HOSPITALIZATION:: Left shoulder fracture dislocation PAST MEDICAL HISTORY/PAST SURGICAL HISTORY:: Tonsillar abscess, torticollis, h/o spinal surgery, hysterestomy, prediabetes, hypertension, adenocarcinoma of endometrium, obesity, closed traumatic dislocation of left glenhumeral joint PREVIOUS FUNCTIONAL STATUS/SOCIAL/FAMILY SUPPORTS:: Resides with Josh in [place], [place]. Independent at baseline in the community. CURRENT FUNCTIONAL STATUS:: Priyanka states that she is not feeling well and does not feel safe with ambulation due to the dizziness, discharge delayed at this time. ADVANCE DIRECTIVES:: Patient not interested. Has patient been provided with info about the portal/API?: Yes CODE STATUS:: Full Code INSURANCE COVERAGE / FINANCIAL ISSUES:: [employer] CURRENT HOME/COMMUNITY SERVICES/EQUIPMENT:: Hand held shower, grab bars. PRIMARY CARE PHYSICIAN:: Autumn Castillo. POTENTIAL DISCHARGE NEEDS:: PT/OT consults, follow up appointments. PATIENT/FAMILY EDUCATION NEEDS:: OT provided proper education and training on ADLs. ANTICIPATED BARRIERS TO DISCHARGE:: None identifed. TRANSPORTATION:: Via private vehicle with Josh. PLAN:: Priyanka will return home when ready per MD. She will follow up with her PCP and plan of care as prescribed. She will transport via private vehicle with her Josh.
[2021-03-21] MEDS: Acetaminophen 325 MG TAB 650 MG PO (14:12)
--- NOTE | 2021-03-21 15:08 | PT.INNT ---
Date of service: 03/21/21 Time of Service: 15:08 PT Notes Visit Reasons: Left shoulder fracture dislocation 03/21/2021 Attempted to educate patient in HEP for gentle PROM for L shoulder, AAROM for L elbow, and AROM for L wrist and hand. Patient became dizzy upon standing and requested to sit back down. She states that she is not feeling well and does not feel safe with ambulation due to the dizziness. Will attempt to see patient tomorrow morning for HEP instruction.
[2021-03-21 15:16] VITALS: BP 173/68; PULSE 78; RESP 20; TEMP 37; O2SAT 98
--- NOTE | 2021-03-21 17:11 | CHAPLAIN ---
Priyanka was resting in bed when I visited. She told me that she had her shoulder replaced after breaking it in a few places. She is being discharged today and looking forward to getting home. She said a friend had planned to come visit her and now will be taking her home.
[2021-03-21] MEDS: Lactated Ringers 1,000 ML 1000 ML IV (17:37)
[2021-03-21 19:05] VITALS: BP 143/77; PULSE 83; RESP 16; TEMP 36.8; O2SAT 99
[2021-03-21] MEDS: Melatonin 3 MG TAB 9 MG PO (21:36)
[2021-03-21 23:47] VITALS: BP 147/77; PULSE 95; RESP 17; TEMP 37.1; O2SAT 97
[2021-03-22 03:25] VITALS: BP 128/75; PULSE 88; RESP 19; TEMP 37; O2SAT 96
[2021-03-22 07:40] VITALS: BP 135/77; PULSE 85; RESP 19; TEMP 36.9; O2SAT 96
[2021-03-22] MEDS: Aspirin E.C. 81 MG TABEC PO (07:42)
[2021-03-22] MEDS: hydroCHLOROthiazide 25 MG TAB PO (07:42)
--- NOTE | 2021-03-22 07:58 | W.PM.PROGNOT ---
Date of Service Date of service: 03/22/21 Time of Service: 09:00 Assessment and Plan Assessment and plan (1) Closed traumatic dislocation of left glenohumeral joint: Status: Acute Assessment and plan: As below (2) Closed fracture of proximal end of left humerus: Status: Acute Assessment and plan: 70 year old female postop day #2 status post left fracture reverse total shoulder arthroplasty with biceps tenodesis Did not feel well enough for discharge yesterday with dizziness on mobilization. Fluid bolus last night. VSS. Improved urine output. Continue below with plans for discharge home today- Pain control excellent- Multimodal as ordered. Physical therapy and Occupational Therapy ordered: Fracture reverse TSA protocol. Should remove sling while in bed or resting. Recommend sling when ambulatory or out of home. Passive range of motion to the shoulder. Active range of motion elbow, wrist, and hand. May use upper extremity gently for all essential ADLs including active range of motion within a limited arc with light weightbearing. 81 mg ASA daily and mechanical DVT prophylaxis with SCDs and/or ZACHARY hose Qualifiers: Encounter type: initial encounter Fracture alignment: displaced Fracture morphology: other fracture Qualified Code(s): S42.292A - Other displaced fracture of upper end of left humerus, initial encounter for closed fracture Objective Last Vital Signs Temp 98.4 F 03/22/21 07:40 Pulse 85 03/22/21 07:40 Resp 19 03/22/21 07:40 BP 135/77 03/22/21 07:40 Pulse Ox 96 03/22/21 07:40
--- NOTE | 2021-03-22 08:26 | DSE_ITS ---
Date of service: 03/21/21 Time of Service: 07:00 DS: Diagnosis Discharge Diagnosis (1) Closed traumatic dislocation of left glenohumeral joint: Status: Acute (2) Closed fracture of proximal end of left humerus: Status: Acute Discharge Plan Disposition Patient Disposition: HOME Condition: Stable Discharge Details Reason For Visit: Left shoulder fracture dislocation Admit Date/Time: 03/20/21 09:59 Admit Provider: Naif Hernandez Attending Provider: Naif Hernandez Primary Care Provider: [facility] Hospital Course: Left fracture reverse TSA 03/20/21. Postop course uncomplicated. Home Meds and New Rx's Prescriptions: New naproxen 250 mg tablet 250 - 500 mg PO BID PRN (Reason: Moderate pain or swelling) Qty: 40 RF: 0 aspirin 81 mg tablet,delayed release (DR/EC) 81 mg PO DAILY 14 Days Qty: 14 RF: 0 oxycodone 5 mg tablet 5 - 10 mg PO Q4H PRN (Reason: moderate to severe pain) Qty: 16 RF: 0 Continued melatonin 10 mg capsule 10 mg PO HS RF: 0 hydrochlorothiazide 25 mg tablet 25 mg PO DAILY Qty: 90 RF: 4 Discontinued multivitamin [Daily Vitamin] 1 EACH tablet 1 ea PO DAILY RF: 0 ascorbic acid (vitamin C) 1,000 MG tablet 1,000 mg PO DAILY RF: 0 cholecalciferol (vitamin D3) [Vitamin D3] 1,000 UNIT capsule 1,000 unit PO DAILY RF: 0 Caltrate 600-D Plus Minerals 1 EACH tablet 1 ea PO DAILY RF: 0 vitamin B complex 1 EACH capsule 1 ea PO DAILY RF: 0 magnesium citrate 100 MG tablet 500 mg PO DAILY RF: 0 acetaminophen 500 mg Tablet 1,000 mg PO Q6H PRNRF: 0 Discharge Instructions Additional Instructions: Surgery: Left fracture reverse total shoulder arthroplasty with biceps tenodesis Activity: Do not lift anything heavier than a coffee. You should keep your arm at your side in a neutral position at all times except for gentle range of motion exercises, physical therapy, and essential activities. You should use the sling whenever you are out of the house. You may have to adjust the abduction pillow or remove it for comfort. At home it is best to remove the sling and rest the arm on a pillow at your side or support the operative side wi th your other hand. A physical therapy prescription will be sent electronically to start in 2-3 weeks. Reverse TSA Protocol: Postoperative Weeks 0-6 ?Immobilization: Sling may be removed for therapeutic exercises, resting in bed or chair, and bathing ?Motion exercises: Pendulum exercises, elbow range- of-motion exercises, wrist [id number] exercises, and long chain quiller tender strengthening ?Restrictions: No active internal rotation or backwards extension Postoperative Weeks 6-12 ?Immobilization: Sling discontinued ?Motion exercises: Shoulder passive range of motion, advancing to active- assisted range of motion, and finally active range of motion with a goal of forward flexion to 90? and external rotation of 20? ?Strengthening exercises: Light, resisted forward flexion, external rotation, and abduction limited to isometric exercises and therapy bands with concentric motions only. Continue long chain quiller tender strengthening ?Restrictions: No resisted internal rotation or backwards extension. No scapular retraction exercises with therapy bands Postoperative Months 3-12 ?Motion exercises: Increase [id number] exercises to achieve full motion, with passive stretching at end ranges ?Strengthening: Begin resisted, internal rotation and backwards extension initially with isometric exercises advancing to light therapy bands and then weights. Advance other shoulder strengthening exercises to include the rotator cuff, deltoid, and scapular stabilizers. Advance to functional strengthening, including plyometric exercises and core strengthening. Prescriptions: Aspirin 81 mg take 1 daily to prevent a blood clot for 2 weeks Naproxen 250 mg take 1-2 every 12 hours with a meal as needed for moderate pain Oxycodone 5 mg take 1-2 every 4-6 hours as needed for severe pain You may use [id number] Tylenol (acetaminophen) as needed for mild pain. These pain medications may be taken all at once or in different combinations as needed. Also, recommend Colace (docusate) as a stool softener as surgery and pain medicine cause constipation. Dressings: Leave dressing in place until follow-up. Keep clean and dry at all times. No showers please. Follow-up: 10-[address] Hernandez Please call the office during business hours with any questions or concerns. Let us know right away if you develop any redness, drainage, fevers, chest pain, or trouble breathing. Do not drink alcohol or drive for at least 24 hours after anesthesia. Referrals: Naif Hernandez MD [ [facility] ST[facility]FF PHYSICIAN] - Activity:: RTSA protocl Equipment/Supplies:: Shoulder immobilizer Diet:: As Tolerated DS: Summary Time Spent with Patient providing and/or coordinating discharge services: Less than 30 minutes Status at Discharge Functional status at discharge: independent ambulation Overall status at discharge: patient is progressing back to baseline Mental Status: mental status grossly normal Speech and Movement: speech and movement normal Mood: congruent mood Affect: normal affect Exam Narrative Exam Narrative: Resting comfortably in bed. No complaints. Feeling well. Left shoulder dressing clean dry intact. Old ecchymosis present arm. Compartments soft. Demonstrates relatively intact motor throughout left upper extremity as well as sensory intact light touch. 2+ left radial pulse. Regular rate and rhythm. 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
[2021-03-22 11:24] VITALS: BP 159/82; PULSE 85; RESP 19; TEMP 36.8; O2SAT 96
[2021-03-22] MEDS: oxyCODONE 5 MG TAB PO (11:30)
--- NOTE | 2021-03-22 11:31 | PT.INTREAT ---
PT Notes Visit Reasons: Left shoulder fracture dislocation Inpatient Physical Therapy Treatment Note [facility] Date: 03/22/21 PRECAUTIONS:[] SUBJECTIVE: Pt reports that she still feels somewhat fuzzy when ambulating. OBJECTIVE: Sit-stand: SBA/CGA Stand-sit: SBA/CGA GAIT Assistive Device: SPC Weight bearing: Full Assist: CGA Distance: Approx 100ft x2 THEREX: Pt recieved PROM of the invovled UE into shoulder flexion/IR/ER. Pt completed bicep curls anti gravity, sup/pronation for forearm, wrist flex/ext, wrist circles, and hand squeezed x 10 each. I also reviewed HEP with her. ASSESSMENT: Pt tolerated today's session well. She did have discomfort with her shoulder PROM and did not tolerate more than approx 80 degrees. PLAN: Pt was going to be D/C to home today. TREATMENT CODE/TIME: 9:25-9:50 (25) KUSHAL WINTER
--- NOTE | 2021-03-22 11:34 | CMDISCH_ITS ---
- If Service Date Differs Date of service: 03/22/21 Time of Service: 11:34 LACE Index Scoring Tool - Questions: Length of Stay (in days): 2 Acuity (Admit via E.D.?): No Comorbidities: Any Tumor E.D. Visits: 0 - Answers: Total Score: 4 Risk of Readmission: Low Risk Care Management Discharge Reason for Hospitalization: Left shoulder fracture dislocation Discharge Plan: Priyanka will return home with no new services. She will follow up with her PCP and plan of care as prescribed. She will transport via private vehicle with her , Josh. Patient/Family Education Needs: OT provided proper education and training on ADL s. Review discharge instructions, limitations, activity, Ask Me Three
--- NOTE | 2021-03-24 18:00 | INDS_ITS ---
Date of service: 03/24/21 PT Notes Visit Reasons: Left shoulder fracture dislocation Physical Therapy Inpatient Discharge Summary Date: 03/24/2021 Dates of Service: 03/21/2021 through 03/22/2021 This is a clinical summary of care provided for the duration of dates listed above. No charge was made in the completion of this documentation. Referring Doctor: Naif Hernandez MD PT Orders: PT CONSULT: Status post Ortho surgery. Left fracture Reverse TSA Precautions: Standard. NWB on the left. Sling on L UE on when walking out of the room. No combined internal rotation and shoulder extension on the left in close kinematic chain. See Dr. Hernandez's rTSA protocol. 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 Independent with all aspects of ADLs prior to surgery. Equipment Owned/DME: None Subjective: NT. See most recent EMERGENCY PLANNING AND RESPONSE MANAGER notes. Objective: General Observation: NT. See most recent EMERGENCY PLANNING AND RESPONSE MANAGER notes. Mental Status: NT. See most recent EMERGENCY PLANNING AND RESPONSE MANAGER notes. Pain: NT. See most recent EMERGENCY PLANNING AND RESPONSE MANAGER notes. Vital Signs: NT. See most recent EMERGENCY PLANNING AND RESPONSE MANAGER notes. ROM: Left Upper Extremity: Was able to passively bring shoulder to 80degrees of flexion, 50 degrees of abduction, and 45 degrees of ER from a fully internally rotated position with mild discomfort at end of range. Strength: Left Upper Extremity: Shoulder flexors 3-/5. Shoulder abductors 3-/5. Shoulder ER 3-/5. Elbow flexors 4-/5. Elbow extensors 4-/5. Wrist 4/5. Coin Purse Assembler strong. Bed Mobility/Transfers: Supine to sit with independent with minimal cues for safe/correct technique Sit to supine with independent with minimal cues for safe/correct technique Sit to stand with standby assist with minimal cues for safe/correct technique Stand to sit with standby assist with minimal cues for safe/correct technique Bed to reclining chair with contact-guard assist with minimal cues for safe/correct technique Gait: Patient only tolerated about 80 feet + 100 feet + 50 feet on level surface ambulation using front wheeled walker with contact-guard assist and reported increasing dizziness and anxiety requiring seated rest. Balance: Static Sitting: Normal Dynamic Sitting: Good Static Standing: Fair Dynamic Standing: Fair Assessment: BP variation limited mobility ADL performance during her stay. PROM limitations due to pain at end of range. Required use of SPC for increased stability during ambulation. Patient presents with clinical signs and symptoms consistent with current/admitting diagnoses that have resulted to mobility limitations, gait instability, generalized weakness, and overall ADL decline as demonstrated by the following impairment level findings: 1. Decreased strength to L shoulder major muscle groups 2. Impaired sitting/standing balance 3. Impaired activity tolerance 4. Limitation of joint range of motion in L shoulder 5. Orthostatic hypotension 6. On L rTSA protocol Impairments are contributing to the following functional limitations: 1. Decline in bed mobility skills 2. Decline in transfer skills 3. Difficulty with ambulation without assistive device and physical assistance 4. Increased completion time for mobility ADL performance 5. Increased risk for falls Goals: Goals X1 week 1. Supine-Sit independent NOT MET 2. Sit-Supine independent NOT MET 3. Sit-Stand independent NOT MET 4. Stand-Sit independent with no AD NOT MET 5. Bed-Chair independent with no AD NOT MET 6. Chair-Bed independent with no AD NOT MET 7. Independent gait on level surface with use of no AD for at least 500 feet without report of pain, fuzziness, dyspnea NOT MET 8. Independent with home exercise program NOT MET 9. Good static and dynamic standing balance/tolerance NOT MET DISCHARGE RECOMMENDATIONS: [] Home with no services [] [] Home with services [specify] [X] Home with outpatient PT: Home when medically cleared by orthopedic surgeon. May benefit from outpatient PT services to facilitate return to premorbid independent level. [] SNF for continued rehabilitation [] [] Starting Sheet Tank Operator Care [] [] SNF versus LTC based on ability to participate and progress [] TREATMENT CODE/TIME: DE Thank you for the opportunity to participate in the care of this patient. Naty Penaloza PT, DPT, CLT [facility] [place], [place]
== END 2021-03-22 13:25 | disposition home or self-care (01) | DRG 483 ==
LOC: PDS 10:37 → MS 17:32
PROVIDERS: Admitting Provider Student in an Organized Health Care Education/Training Program; PCP Nurse Practitioner; Visit Provider Student in an Organized Health Care Education/Training Program
PROC: 0RRK00Z Replacement of Left Shoulder Joint with Reverse Ball and Socket Synthetic Substitute, Open Approach (ICD-10-PCS; CPT 23472; principal; 2021-03-20 11:30)
DX: S42.292A Other displaced fracture of upper end of left humerus, initial encounter for closed fracture (principal); R73.03 Prediabetes; I10 Essential (primary) hypertension; E66.9 Obesity, unspecified; W19.XXXA Unspecified fall, initial encounter; Y92.520 Airport as the place of occurrence of the external cause; Z68.36 Body mass index [BMI] 36.0-36.9, adult; Z85.42 Personal history of malignant neoplasm of other parts of uterus; M75.22 Bicipital tendinitis, left shoulder
CPT/HCPCS: 23472; 23430; 86850; 86900; 86901; 97140; 97162; 97530; 73030; C1781; J0131; J0690; J1100; J2250; J2370; J2405; J2704

== ENCOUNTER 2021-04-02 10:19 | Outpatient (CLI) | payer MEDICARE, SELFPAY ==
--- NOTE | 2021-04-02 10:00 | DI.RAD_ITS ---
Exam(s) XR SHOULDER LT COMPLETE 2+V EXAM: XR SHOULDER LT COMPLETE 2+V CLINICAL HISTORY: LEFT SHOULDER DISLOCATION F/U TECHNIQUE: COMPARISON: CR XR SHOULDER LT COMPLETE 2+V from 03/20/2021 FINDINGS: Three views were obtained. There is a reverse shoulder prosthesis in position. The components appea r well seated. Some fragmentation of the proximal humerus is noted, no gross interval change in alig nment from prior examination March. IMPRESSION: RADIATION DOSE DELIVERED: Total DLP
== END 2021-04-02 10:20 | disposition home or self-care (01) ==
LOC: DIORS 10:19
PROVIDERS: PCP Nurse Practitioner; Referring Provider Nurse Practitioner; Visit Provider Student in an Organized Health Care Education/Training Program
DX: S43.085D Other dislocation of left shoulder joint, subsequent encounter; S42.292D Other displaced fracture of upper end of left humerus, subsequent encounter for fracture with routine healing; X58.XXXD Exposure to other specified factors, subsequent encounter
CPT/HCPCS: 73030

== ENCOUNTER 2021-05-14 04:10 | Outpatient (CLI) | payer MEDICARE, SELFPAY ==
[2021-05-14 11:11] LABS: Hemoglobin A1C 5.2 % (<5.7)
[2021-05-14 12:49] LABS: ALT 33 U/L (14-59); AST 23 U/L (15-37); Albumin 4.1 g/dL (3.4-5.0); Alkaline Phosphatase 92 U/L (46-116); Anion Gap 8.8 mmol/L (3-11); BUN 20 mg/dL (7-18); Bilirubin, Total 0.4 mg/dL (0.2-1.0); CO2 30.2 mmol/L (21.0-32.0); CREATININE 0.7 mg/dL (0.55-1.02); Calcium 9.6 mg/dL (8.5-10.1); Chloride 97 mmol/L (98-107); Glucose 105 mg/dL (74-106); Potassium 4.3 mmol/L (3.5-5.1); Sodium 136 mmol/L (136-145); TSH (W/Ref FT4) 2.78 uIU/mL (0.36-3.74); Total Protein 7.8 g/dL (6.4-8.2)
== END 2021-05-14 04:11 | disposition home or self-care (01) ==
LOC: LBO 04:10
PROVIDERS: PCP Nurse Practitioner; Visit Provider Nurse Practitioner
DX: I10 Essential (primary) hypertension (principal); R63.5 Abnormal weight gain; R73.03 Prediabetes; S43.085A Other dislocation of left shoulder joint, initial encounter; S42.292A Other displaced fracture of upper end of left humerus, initial encounter for closed fracture; X58.XXXA Exposure to other specified factors, initial encounter
CPT/HCPCS: 36415; 80053; 83036; 84443

== ENCOUNTER 2021-05-14 10:46 | Outpatient (CLI) | payer MEDICARE, SELFPAY ==
--- NOTE | 2021-05-14 10:15 | DI.RAD_ITS ---
Exam(s) XR SHOULDER LT COMPLETE 2+V EXAM: XR SHOULDER LT COMPLETE 2+V CLINICAL HISTORY: left shoulder f/u TECHNIQUE: COMPARISON: CR XR SHOULDER LT COMPLETE 2+V from 04/02/2021 FINDINGS: Two views were obtained. There is a reverse shoulder prosthesis in position. The components appear well seated. There is slight fragmentation of the proximal humerus, unchanged from prior studies. N o other significant bony abnormality seen. IMPRESSION: RADIATION DOSE DELIVERED: Total DLP
== END 2021-05-14 10:47 | disposition home or self-care (01) ==
LOC: DIORS 10:46
PROVIDERS: PCP Nurse Practitioner; Referring Provider Nurse Practitioner; Visit Provider Student in an Organized Health Care Education/Training Program
DX: S42.292A Other displaced fracture of upper end of left humerus, initial encounter for closed fracture
CPT/HCPCS: 73030

== ENCOUNTER 2021-07-16 11:47 | Outpatient (CLI) | payer MEDICARE, SELFPAY ==
--- NOTE | 2021-07-16 10:00 | DI.RAD_ITS ---
Exam(s) XR SHOULDER LT COMPLETE 2+V EXAM: XR SHOULDER LT COMPLETE 2+V CLINICAL HISTORY: follow up TECHNIQUE: COMPARISON: CR XR SHOULDER LT COMPLETE 2+V from 05/14/2021 FINDINGS: Three views were obtained. There is a reverse shoulder prosthesis in position. The components appea r well seated. No other significant bony abnormality seen. IMPRESSION: RADIATION DOSE DELIVERED: Total DLP
== END 2021-07-16 11:48 | disposition home or self-care (01) ==
LOC: DIORS 11:47
PROVIDERS: PCP Nurse Practitioner; Referring Provider Nurse Practitioner; Visit Provider Physician Assistant Surgical
DX: S42.292D Other displaced fracture of upper end of left humerus, subsequent encounter for fracture with routine healing (principal); X58.XXXD Exposure to other specified factors, subsequent encounter; S43.085D Other dislocation of left shoulder joint, subsequent encounter
CPT/HCPCS: 99213; 73030

== ENCOUNTER 2021-09-04 01:55 | Outpatient (CLI) | payer MEDICARE, SELFPAY ==
--- NOTE | 2021-09-04 08:15 | DI.DEXA_ITS ---
Exam(s) XR DEXA BONE DENSITY W/WO MISSY EXAM: XR DEXA BONE DENSITY W/WO MISSY CLINICAL HISTORY: SCREENING FOR OSTEOPOROSIS IN POSTMENOPAUSAL WOMAN,Z78.0 TECHNIQUE: COMPARISON: No exams were available for comparison FINDINGS: DEXA scan was performed according to the usual protocol. Please see the accompanying data sheets. Findings for lumbar spine scanning are T-score -0.9. Findings for left hip scanning are T-score -0.6 with left femoral neck T-score -0.7. Findings for left forearm scanning are T-score 0.1. IMPRESSION: The findings are consistent with normal bone density according to the WHO criteria. The lateral vert ebral scanogram shows no evidence of a vertebral compression fracture. RADIATION DOSE DELIVERED: Total DLP
--- NOTE | 2021-09-04 13:10 | DI.MAMMO_ITS ---
Exam(s) MAMMO SCREENING EXAM: MAMMO SCREENING CLINICAL HISTORY: screening,Z12.39 TECHNIQUE: Mammograms were interpreted according to the usual protocol including computer analysis w [employer] CAD system, tomosynthesis and C-view imaging. COMPARISON: FINDINGS: The breasts are of moderate density with fairly symmetrical distribution of fibroglandular tissue. N o dominant mass or clumped microcalcification is identified in either breast. Current examination is compared with previous examination October 2019 and there has been no gross interval change in appearan ce comparison with the previous study. IMPRESSION: No specific evidence of malignancy at this time. Routine screening examinations are suggested at yea rly intervals in this age group according to the ACS ACR guidelines. BI-RADS Category 1 - Negative Breast Density - Category B - Scattered areas of fibroglandular density
== END 2021-09-04 02:15 ==
PROVIDERS: PCP Nurse Practitioner; Visit Provider Nurse Practitioner
DX: Z12.31 Encounter for screening mammogram for malignant neoplasm of breast (principal); Z13.820 Encounter for screening for osteoporosis; Z78.0 Asymptomatic menopausal state
CPT/HCPCS: 77063; 77067; 77080

== ENCOUNTER 2021-09-10 10:38 | Outpatient (CLI) | payer MEDICARE, SELFPAY ==
--- NOTE | 2021-09-10 10:00 | DI.RAD_ITS ---
Exam(s) XR SHOULDER LT COMPLETE 2+V EXAM: XR SHOULDER LT COMPLETE 2+V INDICATION: left shoulder f/u. COMPARISON: CR XR SHOULDER LT COMPLETE 2+V from 07/16/2021 TECHNIQUE: 2D digital imaging was performed. Four views. FINDINGS: There has been no change in the alignment of the reverse shoulder prosthesis. No abnormal bony lucen cies are seen DATA REPOSITORY: RADIATION DOSE DELIVERED:
== END 2021-09-10 10:39 | disposition home or self-care (01) ==
LOC: DIORS 10:38
PROVIDERS: PCP Nurse Practitioner; Referring Provider Nurse Practitioner; Visit Provider Student in an Organized Health Care Education/Training Program
DX: Z96.612 Presence of left artificial shoulder joint (principal); S43.085D Other dislocation of left shoulder joint, subsequent encounter; S42.202D Unspecified fracture of upper end of left humerus, subsequent encounter for fracture with routine healing; X58.XXXD Exposure to other specified factors, subsequent encounter
CPT/HCPCS: 99213; 73030

== ENCOUNTER → 2022-03-18 10:00 | Outpatient (BNVA) | payer MEDICARE, SELFPAY | PROVIDERS: PCP Nurse Practitioner; Visit Provider Student in an Organized Health Care Education/Training Program ==

== ENCOUNTER 2022-09-09 00:42 | Outpatient (CLI) | payer MEDICARE, SELFPAY ==
--- NOTE | 2022-09-09 12:12 | DI.MAMMO_ITS ---
Exam(s) MAMMO SCREENING EXAM: MAMMO SCREENING CLINICAL HISTORY: screening,Z12.39 TECHNIQUE: Bilateral full field digital CC and MLO mammographic images were obtained with 3D tomosyn thesis and utilizing computer aided detection (CAD). COMPARISON: Available for comparison. FINDINGS: Masses/Architectural Distortion: There is an area of asymmetric breast tissue in the upper posterior left breast on the MLO view. This is best appreciated on the tomographic images. It has somewhat ir regular borders. Microcalcifications: No suspicious pleomorphic-type are seen. Skin Thickening/Nipple Retraction: None. IMPRESSION: 1. Asymmetric breast tissue in the upper left breast 8 cm from the nipple. 2. This area should be further evaluated with a spot compression view. Limited left breast ultrasoun d should also be obtained at that time. BI-RADS Category 0 - Assessment Incomplete: Need additional imaging evaluation Breast Density - Category B - Scattered areas of fibroglandular density Breast density category C or D implies that the patient has dense breast tissue. Dense breast tissue is very common and is not abnormal but dense breast tissue can make it harder to find cancer on a ma mmogram. Also, dense breast tissue may increase their breast cancer risk. This information about the result of the mammogram report was provided to the patient to raise their awareness. Use this report when you speak with the patient about their risks for breast cancer, which includes their family hist ory. At that time, you may recommend for more screening tests (Ultrasound or MRI) as they might be us eful based on their risk. A negative radiographic report should not delay biopsy if a dominant or clinically suspicious mass is present. Up to ten percent of cancers are not identified on mammography. A negative report may reinforce clinical impression. Adenosis and dense breasts may obscure an underlying neoplasm. False positive reports average 6 to 10%. Patient will receive a letter notifying them of these results.
== END 2022-09-09 01:02 ==
LOC: DI 00:42
PROVIDERS: PCP Nurse Practitioner Family; Visit Provider Nurse Practitioner Family
DX: Z12.31 Encounter for screening mammogram for malignant neoplasm of breast (principal)
CPT/HCPCS: 77063; 77067

== ENCOUNTER 2022-09-21 01:09 | Outpatient (CLI) | payer MEDICARE, SELFPAY ==
--- NOTE | 2022-09-21 | DI.MAMMO_ITS ---
Exam(s) MG MAMMO SCREEN CALL BACK UNI US BREAST LT LIMITED EXAM: MG MAMMO SCREEN CALL BACK UNI CLINICAL HISTORY: F/U ABNL MAMMO, ASYMMETRIC BREAST TISSUE LT BREAST. TECHNIQUE: mediolateral oblique spot compression digital Mammography views of the leftbreast with T omosynthesis and left breast ultrasound. COMPARISON: MG MG MAMMO SCREENING from 10/10/2019 MG MG MAMMO SCREENING from 09/04/2021 MG MG MAMMO SCREENING from 09/09/2022 US US BREAST LT LIMITED from 09/21/2022 FINDINGS: Mammography/Tomosynthesis: Masses/Architectural Distortion: None seen. Microcalcifictions: No suspicious pleomorphic-type are seen. Skin Thickening/Nipple Retraction: None. Left breast US: Echotexture: Normal appearance of the glandular tissue. Shadowing: No suspicious foci. Cyst: None. Solid lesions: None seen. Ductal dilation: None. IMPRESSION: 1. No evidence of malignancy is noted. 2. Unless there is more urgent need, follow-up screening mammography is recommended, as per [place] [employer] guidelines. BI-RADS Category 1 - Negative Breast Density - Category B - Scattered areas of fibroglandular density A negative radiographic report should not delay biopsy if a dominant or clinically suspicious mass is present. Up to ten percent of cancers are not identified on mammography. A negative report may reinforce clinical impression. Adenosis and dense breasts may obscure an underlying neoplasm. False positive reports average 6 to 10%. Patient will receive a letter notifying them of these results.
== END 2022-09-21 01:29 ==
LOC: DI 01:10
PROVIDERS: PCP Nurse Practitioner Family; Visit Provider Nurse Practitioner Family
DX: R92.8 Other abnormal and inconclusive findings on diagnostic imaging of breast (principal); Z12.31 Encounter for screening mammogram for malignant neoplasm of breast
CPT/HCPCS: 76642; 77063; 77067

== ENCOUNTER 2024-11-22 01:44 | Outpatient (CLI) | payer MEDICARE, SELFPAY ==
--- NOTE | 2024-11-22 07:30 | DI.MAMMO_ITS ---
Exam(s) MAMMO SCREENING EXAM: MAMMO SCREENING CLINICAL HISTORY: screening,z12.39 TECHNIQUE: Bilateral full field digital CC and MLO mammographic images were obtained with 3D tomosynthesis and utilizing computer aided detection (CAD). COMPARISON: Comparison is made with prior examinations. FINDINGS: Masses/Architectural Distortion: No suspicious masses or areas of architectural distortion are present. Microcalcifications: No suspicious pleomorphic-type are seen. Stable benign type calcifications are seen in both breasts. Skin Thickening/Nipple Retraction: None. IMPRESSION: 1. No significant interval change with no specific features of malignancy noted. 2. Unless there is more urgent need, screening mammography is recommended, as per [employer] guidelines. BI-RADS Category 2 - Benign Findings Breast Density - Category B - There are scattered areas of fibroglandular density. Breast density Category C or D implies that the patient has dense breast tissue. Dense breast tissue can make it harder to find cancer on a mammogram. Dense breast tissue is also associated with an increased risk of breast cancer. This information about the result of the mammogram report was provided to the patient to raise their awareness. Use this report when you speak with the patient about their risks for breast cancer, which includes their family history. At that time, you may recommend additional screening tests (Ultrasound or MRI) as these tests may add significant information. A negative radiographic report should not delay biopsy if a dominant or clinically suspicious mass is present. Up to ten percent of cancers are not identified on mammography. A negative report may reinforce clinical impression. Adenosis and dense breasts may obscure an underlying neoplasm. False positive reports average 6 to 10%. Patient will receive a letter notifying them of these results.
== END 2024-11-22 02:04 ==
LOC: DI 01:45
PROVIDERS: PCP Nurse Practitioner Family; Visit Provider Nurse Practitioner Family
DX: Z12.31 Encounter for screening mammogram for malignant neoplasm of breast (principal); R92.323 Mammographic fibroglandular density, bilateral breasts
CPT/HCPCS: 77063; 77067

== ENCOUNTER 2024-11-22 02:45 | Outpatient (CLI) | payer MEDICARE, SELFPAY ==
[2024-11-22 15:56] LABS: Hemoglobin A1C 5.6 % (<5.7)
[2024-11-22 16:15] LABS: Anion Gap 11.0 mmol/L (3-11); BUN 23 mg/dL (7-18); CO2 27.0 mmol/L (21.0-32.0); Calcium 9.4 mg/dL (8.5-10.1); Calculated LDL 152 mg/dL (<100); Chloride 95 mmol/L (98-107); Cholesterol 262 mg/dL (<200); Estimated GFR 93.55 (mL/min/1.73m2); Glucose 101 mg/dL (74-106); HDL Cholesterol 88 mg/dL (>or=50); Potassium 4.0 mmol/L (3.5-5.1); Sodium 133 mmol/L (136-145); Triglyceride 112 mg/dL (<150)
== END 2024-11-22 02:46 | disposition home or self-care (01) ==
LOC: LBO 02:45
PROVIDERS: PCP Nurse Practitioner Family; Visit Provider Nurse Practitioner Family
DX: R73.03 Prediabetes (principal); I10 Essential (primary) hypertension
CPT/HCPCS: 36415; 80048; 80061; 83036